=== PATIENT | male | born 1945 | race Caucasian/White ===

== ENCOUNTER → 2023-12-14 08:06 | Outpatient (REF) | payer MEDICARE, BC, SELFPAY | LOC: DHCBC HW 08:06 | PROVIDERS: ATTENDING PHYSICIAN Internal Medicine Cardiovascular Disease; FAMILY PHYSICIAN Family Medicine | DX: E78.2 Mixed hyperlipidemia (principal); I35.0 Nonrheumatic aortic (valve) stenosis; I44.0 Atrioventricular block, first degree | CPT/HCPCS: 93306 ==

== ENCOUNTER → 2023-12-19 11:21 | Outpatient (REF) | payer MEDICARE, BC, SELFPAY | LOC: HWRAD 11:21 | PROVIDERS: ATTENDING PHYSICIAN Surgery; FAMILY PHYSICIAN Family Medicine | DX: K40.90 Unilateral inguinal hernia, without obstruction or gangrene, not specified as recurrent (principal) | CPT/HCPCS: 74177; Q9967 ==

== ENCOUNTER 2024-01-07 06:11 | Day surgery (SDC) | payer MEDICARE, BC, SELFPAY ==
[2024-01-07] VITALS (9 sets, daily range): BP systolic 103–146; BP diastolic 69–98; BMI 33.9
[2024-01-07] MEDS: TYLENOL 1000 MG PO (06:42)
[2024-01-07] MEDS: NORMOSOL-R 1000 IV (06:54)
--- NOTE | 2024-01-07 09:48 | OR.RPT ---
Operative Report
Operative Report
Primary Surgeon: Cassie
Assisting: Tone PGY1
Pre-op Diagnosis: Incarcerated left inguinal hernia
Post-op Diagnosis: Same
Procedure Performed: Robot assisted laparoscopic repair of incarcerated left inguinal hernia
Anesthesia Type: GETA
Specimen / Cultures: None
Estimated Blood Loss: 5cc
Complications: None immediate
Operative Findings: Sliding defect with sigmoid involvement, large sac totally reduced, XL MID 3D Max
Date of surgery: 01/07/24
Indications:� This 78M developed symptomatic left inguinal hernia. Robot assisted laparoscopic repair was planned.
Description of procedure:� The patient was taken to the operating room and positioned into supine position. The patient�s abdomen was prepped and draped in standard sterile fashion. A time-out was completed verifying correct patient, procedure,
site, positioning, and implants and special equipment prior to beginning this procedure.� The hernia was manually reduced after induction. A stab incision was made in the left upper quadrant, a Veress needle was inserted and proper position was
confirmed by aspiration and saline drop test. Following this, pneumoperitoneum was created with insufflation of carbon dioxide to 12 mmHg. Then a 8mm robotic trocar was inserted above and to the left of the umbilicus. A laparoscope was inserted and
the area of initial trocar entry and Veress needle placement were both inspected and no injuries were found. Two 8mm trocars were then placed lateral to the rectus sheath under direct visualization.
Both inguinal regions were inspected and the median umbilical ligament, medial umbilical ligament, and lateral umbilical fold were identified. The right groin was inspected and no abnormality was identified. Attention was turned to the left groin.
The sigmoid tracked up into the canal. Reduction was attempted without grasping the bowel itself however it was apparent that the colon was tethered or involved in the sac. The peritoneum was incised transversely above the defect and a flap was
developed in the caudad direction. Guy�s ligament was identified ultimately dissected to its junction with the iliac vein and the space of Retzius was developed bluntly.� The dissection was continued inferiorly to the iliopubic tract, with care
taken to avoid injury to the femoral branch of the genitofemoral nerve and the lateral femoral cutaneous nerve. The cord structures were parietalized.
The direct space was inspected and a hernia was not identified. The femoral space was inspected and a defect was not identified.� The indirect space was inspected and a large indirect hernia was reduced. Care was taken not to grasp the colon during
this maneuver.
Extra large left MID 3D max mesh was passed through a trocar. The mesh was placed into the preperitoneal space and moved into position to lay flat and completely cover the direct, indirect, and femoral spaces with overlap beyond the midline. The
mesh was secured into place using 2-0 vicryl suture to Guy�s ligament medially and laterally. Care was taken to avoid the inferolateral triangles containing the iliac vessels and genital nerves.
The peritoneal flap was closed over the mesh and secured with 2-0 monocryl stratafix suture in similar positions of safety. A few flap rents were closed with 2-0 Monocryl Stratafix suture. A 14g angiocath was used to decompress the preperitoneal
space revealing good seal and all mesh in good position without folding or curling. After ensuring adequate hemostasis, the trocars were removed and the pneumoperitoneum allowed to escape. The trocar incisions were closed at the skin level using 4-0
monocryl and topical skin adhesive. All counts were correct and the patient tolerated the procedure well and was taken to the postanesthesia care unit in stable condition.
--- NOTE | 2024-01-07 10:12 | SUR.PHASEI ---
Dr. Malik notified about pt.s HR, and okay to move to [facility].
== END 2024-01-07 11:25 | disposition home or self-care (01) ==
LOC: SDS 06:11
PROVIDERS: ATTENDING PHYSICIAN Surgery
DX: K40.30 Unilateral inguinal hernia, with obstruction, without gangrene, not specified as recurrent (principal)
CPT/HCPCS: 49650; C1781

== ENCOUNTER → 2024-07-11 09:43 | Outpatient (REF) | payer MEDICARE, BC, SELFPAY | LOC: MRI 3T 09:43 | PROVIDERS: ATTENDING PHYSICIAN Physician Assistant Surgical | DX: M25.571 Pain in right ankle and joints of right foot (principal) | CPT/HCPCS: 73721 ==

== ENCOUNTER → 2024-12-19 07:57 | Outpatient (REF) | payer MEDICARE, BC, SELFPAY | LOC: HWRCS 07:57 | PROVIDERS: ATTENDING PHYSICIAN Internal Medicine Cardiovascular Disease; FAMILY PHYSICIAN Family Medicine | DX: I10 Essential (primary) hypertension (principal); E78.2 Mixed hyperlipidemia; I35.0 Nonrheumatic aortic (valve) stenosis | CPT/HCPCS: 93306 ==